=== PATIENT | female | born 1990 | race Caucasian/White ===

== ENCOUNTER 2019-12-09 14:25 | Emergency (ER) | payer OTHER ==
[~2019-12-09] VITALS: Ht 165.1 cm; Wt 54.4 kg
[2019-12-09] MEDS ORDERED: PROZAC20 MG (15:04)
[2019-12-09] MEDS ORDERED: BUPROPION HCL200 M1 (15:05)
[2019-12-09] MEDS ORDERED: VALTREX1000 MG PO (16:10)
[2019-12-09] MEDS ORDERED: FLUCONAZOLE150 MG PO (16:10)
[2019-12-09] MEDS ORDERED: VISTARIL50 MG PO (16:18)
== END 2019-12-09 17:02 ==
LOC: ER 14:25
DX: A63.8 Other specified predominantly sexually transmitted diseases (principal); A60.09 Herpesviral infection of other urogenital tract

== ENCOUNTER → 2020-05-12 | Emergency (ER) | payer OTHER ==
[~2020-05-12] VITALS: Ht 165.1 cm; Wt 61.2 kg
[~2020-05-12] MED LIST: AMOX-CLAV 875-1 EACH PO; BUPROPION HCL200 M1; FLUCONAZOLE150 MG PO; KETO10TA2 PO; MUPIROCIN22 GM TOP; PROZAC20 MG; VALTREX1000 MG PO; VISTARIL50 MG PO
== END ==
LOC: ER 05:03
DX: S61.242A Puncture wound with foreign body of right middle finger without damage to nail, initial encounter (principal); W26.8XXA Contact with other sharp object(s), not elsewhere classified, initial encounter; Y93.G1 Activity, food preparation and clean up; Y92.511 Restaurant or cafe as the place of occurrence of the external cause; Y92.69 Other specified industrial and construction area as the place of occurrence of the external cause; Y99.8 Other external cause status

== ENCOUNTER → 2020-11-22 | Emergency (ER) | payer OTHER ==
[~2020-11-22] VITALS: Ht 167.6 cm; Wt 64.4 kg
[~2020-11-22] MED LIST changes: +PROZAC40 MG PO; +WELLBUTRIN XL300 MG PO
== END | disposition left against medical advice (07) ==
LOC: ER 23:06
DX: Z53.21 Procedure and treatment not carried out due to patient leaving prior to being seen by health care provider (principal)

== ENCOUNTER → 2020-11-24 | Emergency (ER) | payer OTHER ==
[~2020-11-24] VITALS: Ht 167.6 cm; Wt 63.5 kg
== END | disposition left against medical advice (07) ==
LOC: ER 12:43
DX: Z53.21 Procedure and treatment not carried out due to patient leaving prior to being seen by health care provider (principal)